=== PATIENT | female | born 1995 | race African-American/Black ===

== ENCOUNTER 2018-07-30 13:59 | Emergency (ER) | END 2018-07-30 15:40 | disposition home or self-care (01) ==

== ENCOUNTER 2018-12-09 11:37 | Emergency (ER) | payer MEDICAID, OTHER ==
[~2018-12-09] VITALS: Wt 80.0 kg
[~2018-12-09 11:37] MED LIST: IBUP-1542 PO; METH750T93 PO
[2018-12-09] MEDS ORDERED: IBUP-1542 PO (14:29)
--- NOTE | 2018-12-09 14:42 | ERD ---
ER Documentation Chief Complaint Chief Complaint VAGINAL BLEEDING X 1 MOS HPI Patient is a 23-year-old female presents ER for concerns of multiple complaints. Patient states she has had intermittent vaginal bleeding for the last month. She states her last mental period was on 12-01-18. Patient states her period ended on November 07. She states that she had unprotected sex on 11-18-18 and she took a Plan B-like medicine however does not recall the name and it started with an L. Patient states since , she had intermittent bleeding. Patient states some days she wears 2-3 pads some day she wears 1 pad some days she only has blood with wiping. Patient denies any dizziness or lightheadedness. Patient denies any fevers or chills. Patient denies any abdominal pain. She denies any urinary symptoms. Patient also states that her left breast has been itching. She denies any chest pain. She denies any bleeding or discharge. Patient also is requesting to have keloid removed from year. ROS All systems reviewed and are negative except as per history of present illness. Medications Home Meds Active Scripts Ibuprofen* (Motrin*) 600 Mg Tab, 600 MG PO Q6, #30 TAB Prov:YOLIE BERG PA-C 12/09/18 Methocarbamol* (Robaxin*) 750 Mg Tablet, 750 MG PO TID PRN for muscl, #30 TAB Prov:FARIDEH CAMPBELL DO 07/30/18 Ibuprofen* (Motrin*) 600 Mg Tab, 600 MG PO Q6H PRN for PAIN, #30 TAB Prov:FARIDEH CAMPBELL DO 07/30/18 Allergies Allergies: Coded Allergies: No Known Allergy (Unverified , 07/30/18) PMhx/Soc History of Surgery: No Anesthesia Reaction: No Hx Neurological Disorder: No Hx Respiratory Disorders: No Hx Cardiac Disorders: No Hx Psychiatric Problems: No Hx Miscellaneous Medical Probl: No Hx Substance Use: No Hx Tobacco Use: No FmHx Family History: No diabetes Physical Exam Vitals Vital Signs Date Temp Pulse Resp B/P (MAP) Pulse Ox O2 O2 Flow FiO2 Time Delivery Rate 12/09/18 98.1 70 18 136/70 99 11:40 (92) Physical Exam GENERAL: Well-developed, well-nourished female speaking in full sentences.. Appears in no acute distress. HEAD: Normocephalic, atraumatic. EYES: Pupils are equally reactive bilaterally. EOMs grossly intact. No conjunctival erythema. ENT: Moist mucous membranes. No uvula deviation. No kissing tonsils. Keloid noted on the posterior right lower lobe. NECK: Supple. No meningismus. Normal range of motion of the neck. LUNG: Clear to auscultation bilaterally. No rhonchi, wheezing, rales or coarse breath sounds. HEART: Regular rate and rhythm. No murmurs, rubs or gallops. ABDOMEN: No scars, ecchymosis or rashes noted. Soft, nontender, and no ndistended. Positive bowel sounds in all four quadrants. No rebound tenderness, no guarding. (-) McBurney's point tenderness. No CVA tenderness. EXTREMITIES: Equal pulses bilaterally. No peripheral clubbing, cyanosis or edema. No unilateral leg swelling. NEUROLOGIC: Alert and oriented. Moving all four extremities without any difficulty. Normal speech. Steady gait. SKIN: No rashes or lesions on left breast. No erythema or warmth. No vision or fluctuance. Result Diagram: 12/09/18 1235 12/09/18 1235 Results 24 hrs Laboratory Tests Test 12/09/18 12:35 12/09/18 12:40 12/09/18 12:51 White Blood Count 3.7 10^3/ul Red Blood Count 4.65 10^6/ul Hemoglobin 13.4 g/dl Hematocrit 40.1 % Mean Corpuscular Volume 86.2 fl Mean Corpuscular Hemoglobin 28.8 pg Mean Corpuscular 33.4 g/dl Hemoglobin Concent Red Cell Distribution Width 11.9 % Platelet Count 273 10^3/UL Mean Platelet Volume 9.6 fl Immature Granulocytes % 0.300 % Neutrophils % 44.3 % Lymphocytes % 45.3 % Monocytes % 9.1 % Eosinophils % 0.5 % Basophils % 0.5 % Nucleated Red Blood Cells % 0.0 /100WBC Immature Granulocytes # 0.010 10^3/ul Neutrophils # 1.7 10^3/ul Lymphocytes # 1.7 10^3/ul Monocytes # 0.3 10^3/ul Eosinophils # 0.0 10^3/ul Basophils # 0.0 10^3/ul Nucleated Red Blood Cells # 0.0 10^3/ul Sodium Level 141 mmol/L Potassium Level 4.0 mmol/L Chloride Level 104 mmol/L Carbon Dioxide Level 26 mmol/L Anion Gap 11 Blood Urea Nitrogen 6 mg/dl Creatinine 0.73 mg/dl Est Glomerular Filtrat > 60 mL/min Rate mL/min Glucose Level 86 mg/dl Calcium Level 9.3 mg/dl Total Bilirubin 0.8 mg/dl Direct Bilirubin 0.00 mg/dl Indirect Bilirubin 0.8 mg/dl Aspartate Amino Transf (AST/SGOT) 24 IU/L Alanine 16 IU/L Aminotransferase (ALT/SGPT) Alkaline Phosphatase 55 IU/L Total Protein 7.7 g/dl Albumin 4.4 g/dl Globulin 3.30 g/dl Albumin/Globulin Ratio 1.33 Lipase 88 U/L Urine Color YELLOW Urine Clarity CLEAR Urine pH 7.0 Urine Specific [place] 1.003 Urine Ketones TRACE mg/dL Urine Nitrite NEGATIVE mg/dL Urine Bilirubin NEGATIVE mg/dL Urine Urobilinogen NEGATIVE mg/dL Urine Leukocyte Esterase NEGATIVE Eliazar/ul Urine Microscopic RBC 4 /HPF Urine Microscopic WBC 1 /HPF Urine Squamous Epithelial Cells FEW /HPF Urine Bacteria FEW /HPF Urine Hemoglobin 3+ mg/dL Urine Glucose NEGATIVE mg/dL Urine Total Protein NEGATIVE mg/dl POC Beta HCG, Qualitative NEGATIVE Procedures/MDM ED COURSE: The patient was stable throughout ED course. I kept the patient and/or family informed of laboratory and diagnostic imaging results throughout the ED course. DIAGNOSTIC IMAGING: Read by radiologist. Patient: LACEY RAMESH : 1995 Age: 23 Sex: F MR #: [id number] DOS: 12/09/18 1232 Ordering MD: YOLIE BERG PA-C Location: [facility] Room/Bed: PROCEDURE: US Pelvis. CLINICAL INDICATION: Abnormal vaginal bleeding. TECHNIQUE: The pelvis was evaluated with transabdominal sonography in the axial and sagittal planes. COMPARISON: No prior study is available for comparison. FINDINGS: Uterus: 6.7 x 3.1 x 4.6 cm. Endometrium: 3.1 mm. Right ovary: 4.8 x 1.4 x 2.2 cm. Left ovary: 4.6 x 1.9 x 2.0 cm. Uterine masses: None. Ovarian masses: None. Color Doppler and pulsed Doppler sonography demonstrate normal flow to the ovaries. Other pelvic masses: None. Free fluid: None. IMPRESSION: 1. Normal pelvic ultrasound. RPTAT: QQ Physician Roberta Date Time Electronically viewed and signed by Physician Roberta on 12/09/2018 14:08 KR/ CC: YOLIE BERG PA-C MEDICAL DECISION MAKING: This is a 23-year-old female presents ER for concerns of intermittent vaginal bleeding for 1 month. Patient symptoms started after she took a Plan B like medication after having unprotected sex. She denies any dizziness or lightheadedness per vital signs were reviewed. Patient was afebrile. Patient was hemodynamically stable. Urine test was negative. CBC showed no evidence of systemic infection or severe anemia. CMP showed no severe electrolyte abnormalities, alkalosis, renal injury or liver injury. Lipase is negative for pancreatitis. UA was negative for acute infection. 3+ blood was noted. Pelvic ultrasound was unremarkable. See formal report above. Patient was encouraged to follow-up with ELECTROCARDIOGRAPHIC TECHNICIAN for further management of her dysfunctional uterine bleeding. Patient is advised to follow-up with bone worker for further management regularly. Aquaphor is advised for her breast itchiness for Low suspicion for ectopic , threatened , spontaneous , cervical polyp, fibroid, uterine hyperplasia, malignancy, endometriosis, coagulopathy, tubo-ovarian abscess, hormonal medication, steroids, IUD. Patient was nontoxic, non ill appearing prior to discharge. PRESCRIPTIONS: Ibuprofen DISCHARGE: At this time, patient is stable for discharge and outpatient management. I have instructed the patient to follow-up with his/her primary care physician in 1-2 days. I have instructed the patient to promptly return to the ER for any new or worsening symptoms including increased pain, swelling, redness, warmth or fever. The patient and/or family expressed understanding of and agreement with this plan. All questions were answered. Home care instructions were provided. Disclaimer: Inadvertent spelling and grammatical errors are likely due to EHR/dictation software use and do not reflect on the overall quality of patient care. Also, please note that the electronic time recorded on this note does not necessarily reflect the actual time of the patient encounter. Departure Diagnosis: Primary Impression: Vaginal bleeding Additional Impressions: Itching Keloid of skin Condition: Fair Patient Instructions: Dysfunctional Uterine Bleeding Referrals: ARVIND PITTS MD,FADI CASTRO,MARYA REYEZ,FARIDEH ROWLEY,ARMANDO ZUNIGA,YVONNE GLEASON [facility] YOU HAVE RECEIVED A MEDICAL SCREENING EXAM AND THE RESULTS INDICATE THAT YOU DO NOT HAVE A CONDITION THAT REQUIRES URGENT TREATMENT IN THE EMERGENCY DEPARTMENT. FURTHER EVALUATION AND TREATMENT OF YOUR CONDITION CAN WAIT UNTIL YOU ARE SEEN IN YOUR DOCTORS OFFICE WITHIN THE NEXT 1-2 DAYS. IT IS YOUR RESPONSIBILITY TO MAKE AN APPOINTMENT FOR FOLOW-UP CARE. IF YOU HAVE A PRIMARY DOCTOR --you should call your primary doctor and schedule an appointment IF YOU DO NOT HAVE A PRIMARY DOCTOR YOU CAN CALL OUR PHYSICIAN REFERRAL HOTLINE AT IF YOU CAN NOT AFFORD TO SEE A PHYSICIAN YOU CAN CHOSE FROM THE FOLLOW[facility] [address] [facility] [facility] [address] [facility] [facility] [address] [facility] [address] [facility] [address] [facility]. [facility] [address] [facility]. [facility] YOU HAVE RECEIVED A MEDICAL SCREENING EXAM AND THE RESULTS INDICATE THAT YOU DO NOT HAVE A CONDITION THAT REQUIRES URGENT TREATMENT IN THE EMERGENCY DEPARTMENT. FURTHER EVALUATION AND TREATMENT OF YOUR CONDITION CAN WAIT UNTIL YOU ARE SEEN IN YOUR DOCTORS OFFICE WITHIN THE NEXT 1-2 DAYS. IT IS YOUR RESPONSIBILITY TO MAKE AN APPOINTMENT FOR FOLOW-UP CARE. IF YOU HAVE A PRIMARY DOCTOR --you should call your primary doctor and schedule and appointment IF YOU DO NOT HAVE A PRIMARY DOCTOR YOU CAN CALL OUR PHYSICIAN REFERRAL HOTLINE AT . IF YOU CAN NOT AFFORD TO SEE A PHYSICIAN YOU CAN CHOSE FROM THE FOLLOWING [facility] INSTITUTIONS: [facility] [address] [place] [address] [facility] [address] [place] [address] [facility] [address] [place] [address] ELECTROCARDIOGRAPHIC TECHN[place] [address] [facility] [address] [place] [address] OFFICE FAX , [facility] [address] [place] [address] [address] PRIEST, [place] [address] [place] [address] [address] QUINONEZ, [facility] [address] [facility] [address] [address]MELL, [facility] [address] [place] [address] [facility] [address] [place] [address] [address] [facility] [id number] - [address] ZIMMER, [place]ANTH[place] [address] [facility], [facility] [address] [address] FISHER, [place] [address] [facility]. [address], [facility] [address] [address] [facility] [address] [place], [place] [id number] Additional Instructions: Follow-up with ELECTROCARDIOGRAPHIC TECHNICIAN for further evaluation and workup of symptoms. Follow-up with a bone worker for further management of your keloid. Use aquaphor for breast itching. Call your primary care doctor TOMORROW for an appointment during the next 1-2 days.See the doctor sooner or return here if your condition worsens before your appointment time. YOLIE BERG PA-C Dec 09, 2018 14:41
[2018-12-09 14:51] VITALS: BP 111/73; PULSE 82; RESP 16
== END 2018-12-09 14:52 | disposition home or self-care (01) ==
LOC: FTE 11:37
DX: N93.9 Abnormal uterine and vaginal bleeding, unspecified (principal); L91.0 Hypertrophic scar; L29.9 Pruritus, unspecified
CPT/HCPCS: 36415; 76856; 80053; 81001; 81025; 83690; 85025; Z7502